=== PATIENT | male | born 1960 | race Caucasian/White ===

== ENCOUNTER 2020-10-17 09:06 | Outpatient (CLI) | payer MEDICARE, MEDICAID, SELFPAY | END 2020-10-17 09:07 | disposition home or self-care (01) | LOC: ANHBWCAUD 09:07 | DX: H91.93 Unspecified hearing loss, bilateral (principal) | CPT/HCPCS: 92555; 92567; 92579; 92587 ==

== ENCOUNTER 2023-11-16 08:04 | Outpatient (CLI) | payer MEDICARE, MEDICAID, SELFPAY | END 2023-11-16 08:05 | disposition home or self-care (01) | LOC: ANHBWCAUD 08:07 | DX: H91.93 Unspecified hearing loss, bilateral (principal) | CPT/HCPCS: 92555; 92567; 92579 ==